=== PATIENT | female | born 1990 | race Caucasian/White ===

== ENCOUNTER 2018-02-09 16:25 | Emergency (ER) ==
[2018-02-09 16:35] VITALS: BP 104/68; TEMP 98.2; BMI 21.2
--- NOTE | 2018-02-09 18:01 | ED.PDOC ---
General ED Provider: Dr. EMELINA GONZALES MD Chief Complaint: Nausea/Vomiting Stated Complaint: Rachele been throwing up all day Time Seen by Physician: 18:00 Mode of Arrival: Walk-In Information Source: Patient Exam Limitations: No limitations Primary Care Provider: KRISTI SHABAZZ Referred to ED by: Other Nursing and Triage Documentation Reviewed and Agree: Yes Reviewed sepsis parameters & appropriate labs ordered?: Yes System Inflammatory Response Syndrome: Temp 96.8F or Lower, Pulse >90 BPM Sepsis Protocol: For patient's 13 years and over: Temp is 96.8 and below OR 101 and greater Pulse >90 BPM Resp >20/minute Acutely Altered Mental Status Are patient's symptoms suggestive of a new infection, such as: -Pneumonia -Skin, Soft Tissue -Endocarditis -UTI -Bone, Joint Infection -Implantable Device -Acute Abdominal Infection -Wound Infection -Meningitis -Blood Stream Catheter Infection -Unknown GI Complaint Exam - Vomiting/Diarrhea Complaint/Exam Onset/Duration: today Symptoms Are: Still present Episodes of Vomiting over last 24 Hours: 10 Initial Severity: Mild Current Severity: Moderate Character of Vomiting: Reports: Non-bilious Aggravating: Reports: None Alleviating: Reports: None : 1 Para: 1 Review of Systems - Review Of Systems Constitutional: Reports: No symptoms Eyes: Reports: No symptoms Ears, Nose, Mouth, Throat: Reports: No symptoms Respiratory: Reports: No symptoms Cardiac: Reports: No symptoms GI: Reports: No symptoms, Vomiting : Reports: No symptoms (delivered baby 2 months ago) Musculoskeletal: Reports: No symptoms Skin: Reports: No symptoms Neurological: Reports: No symptoms Endocrine: Reports: No symptoms Hematologic/Lymphatic: Reports: No symptoms All Other Systems: Reviewed and Negative Past Medical History - Past Medical History Previously Healthy: Yes Endocrine: Reports: None Cardiovascular: Reports: None Respiratory: Reports: None Hematological: Reports: None Gastrointestinal: Reports: None Genitourinary: Reports: None Neuro/Psych: Reports: None Musculoskeletal: Reports: None Cancer: Reports: None Last Menstrual Period: more than 2 months, is 2 months - Surgical History General Surgical History: Reports: None, Tonsillectomy, Other (PE TUBES) - Family History Family History: Reports: Unknown - Social History Smoking Status: Current every day smoker, Light tobacco smoker Hx Substance Use: No Alcohol Screening: None Physical Exam - Physical Exam Appearance: No pain distress Ill-appearing: Mild Eyes: TORY, EOMI, Conjunctiva clear ENT: Ears normal, Nose normal, Oropharynx normal Neck: Supple Respiratory: Airway patent, Breath sounds clear, Breath sounds equal, Respirations nonlabored Cardiovascular: RRR, Pulses normal, No rub, No murmur GI/: Soft, Nontender, No masses, Bowel sounds normal (slightly decreased), No Organomegaly Musculoskeletal: Normal strength, ROM intact, No edema, No calf tenderness Skin: Warm, Dry, Normal color Neurological: Sensation intact, Motor intact, Reflexes intact, Cranial nerves intact, Alert, Oriented Psychiatric: Affect appropriate, Mood appropriate Interpretation - Radiology Interpretation Exam Interpreted: Other Xray Comments: KUB showed increased gas Radiology Interpretation By: ED Physician Re-Evaluation - Re-Evaluation Time of Re-Evaluation: 19:15 Status: Improved Pain Level: none Appearance: NAD Lungs: Clear Skin: Warm and Dry Neuro: Alert and Oriented X3 CV: RRR Critical Care Note - Critical Care Note Total Time (mins): 0 Course - Course Hematology/Chemistry: 02/09/18 18:11 02/09/18 18:11 Orders, Labs, Meds: Lab Review 02/09/18 02/09/18 02/09/18 18:11 18:11 18:25 WBC 10.70 H RBC 4.69 Hgb 13.6 Hct 38.0 MCV 81.0 MCH 29.0 MCHC 35.8 H RDW Coeff of Zamzam 13.0 Plt Count 198 Immature Gran % (Auto) 0.3 Neut % (Auto) 76.4 Lymph % (Auto) 13.4 [place] % (Auto) 6.2 Eos % (Auto) 3.6 Baso % (Auto) 0.1 Immature Gran # (Auto) 0.0 Neut # (Auto) 8.2 H Lymph # (Auto) 1.4 [place] # (Auto) 0.7 Eos # (Auto) 0.4 Baso # (Auto) 0.0 Sodium 137 Potassium 3.8 Chloride 106 Carbon Dioxide 22 Anion Gap 12.8 BUN 14 Creatinine 0.91 Estimated GFR (MDRD) 75.00 BUN/Creatinine Ratio 15.38 Glucose 93 Calcium 9.8 Urine Test Negative Orders Category Date Time Status BMP [BASIC METABOLIC PANEL] Stat LAB 02/09/18 18:11 Completed CBC W/ AUTO DIFF Stat LAB 02/09/18 18:11 Completed TEST URINE [URINE ] Stat LAB 02/09/18 18:25 Completed Prochlorperazine Edisylate [Compazine] MEDS 02/09/18 18:04 Discontinued 10 mg IM ONCE STA ABDOMEN 1 VIEW Stat RADS 02/09/18 18:03 Ordered Medications Discontinued Medications Generic Name Dose Route Start Last Admin Trade Name Freq PRN Reason Stop Dose Admin Prochlorperazine Edisylate 10 mg 02/09/18 18:04 02/09/18 18:16 Compazine IM 02/09/18 18:05 10 mg ONCE STA Administration Vital Signs: Temp Pulse Resp BP Pulse Ox 02/09/18 16:29 98.2 F 107 H 20 104/68 98 Departure - Departure Time of Disposition: 19:30 Disposition: HOME SELF-CARE Discharge Problem: Gastroenteritis Condition: Good Pt referred to PMD for follow-up: Yes IPMP verified?: No Allergies/Adverse Reactions: Allergies No Known Allergies Allergy (Verified 09/13/16 11:21) Home Medications: Ambulatory Orders Venlafaxine HCl [Effexor] 75 mg PO DAILY 02/09/18
[2018-02-09] MEDS ORDERED: COMPAZINE IM STA (18:04)
--- NOTE | 2018-02-10 07:52 | DI ---
EXAM: Abdomen, single view 02/09/2018 HISTORY: Vomiting COMPARISON: 08/03/2013 FINDINGS / IMPRESSION: Nonobstructive bowel gas pattern
== END 2018-02-09 19:50 | disposition home or self-care (01) ==
LOC: ED 16:25
DX: K52.9 Noninfective gastroenteritis and colitis, unspecified (principal); F17.210 Nicotine dependence, cigarettes, uncomplicated
CPT/HCPCS: 36415; 80048; 81025; 85025; 96372; 99283

== ENCOUNTER 2018-12-07 09:31 | Emergency (ER) ==
[2018-12-07 09:36] VITALS: BP 107/66; TEMP 97.4; BMI 19.5
--- NOTE | 2018-12-21 14:58 | ED.PDOC ---
General ED Provider: Dr. OH ROSEN Chief Complaint: Medication Refill Stated Complaint: med refill Time Seen by Physician: 09:45 (medrefill effexor) Mode of Arrival: Walk-In Information Source: Patient Exam Limitations: No limitations Nursing and Triage Documentation Reviewed and Agree: Yes Does patient meet sepsis criteria?: No System Inflammatory Response Syndrome: Not Applicable Sepsis Protocol: For patient's 13 years and over: Temp is 96.8 and below OR 101 and greater Pulse >90 BPM Resp >20/minute Acutely Altered Mental Status Are patient's symptoms suggestive of a new infection, such as: -Pneumonia -Skin, Soft Tissue -Endocarditis -UTI -Bone, Joint Infection -Implantable Device -Acute Abdominal Infection -Wound Infection -Meningitis -Blood Stream Catheter Infection -Unknown Psychological Complaint Exam - Psychiatric Complaint/Exam Patient Complains Of: Present: Depression. Absent: Suicidal thoughts, Suicidal gestures Symptoms Are: Still present Timing: Constant Initial Severity: Mild Current Severity: Mild Character: Present: Anxious Aggravating: Reports: None Associated Signs And Symptoms: Denies: Hostile, Confused, Hallucinating, Paranoid behavior, Sleep disturbance, Appetite change Related History: Denies: Suicidal thoughts, Suicidal plan, Suicidal gestures, Homicidal thoughts, Homicidal gestures, Prior attempts Completed Suicide Risk Factors: None Social Withdrawal Present: No Social Isolation Present: No Prior Suicide Attempt: No Injury From Prior Suicide Attempt: No Related Surgical History: Reports: None Patient Uncooperative For Exam: No Review of Systems - Review Of Systems Constitutional: Reports: No symptoms Eyes: Reports: No symptoms Ears, Nose, Mouth, Throat: Reports: No symptoms Respiratory: Reports: No symptoms Cardiac: Reports: No symptoms GI: Reports: No symptoms : Reports: No symptoms Musculoskeletal: Reports: No symptoms Skin: Reports: No symptoms Neurological: Reports: Emotional problems Endocrine: Reports: No symptoms Hematologic/Lymphatic: Reports: No symptoms All Other Systems: Reviewed and Negative Past Medical History - Past Medical History Previously Healthy: Yes Endocrine: Reports: None Cardiovascular: Reports: None Respiratory: Reports: None Hematological: Reports: None Gastrointestinal: Reports: None Genitourinary: Reports: None Neuro/Psych: Reports: None Musculoskeletal: Reports: None Cancer: Reports: None Last Menstrual Period: just finished yesterday - Surgical History General Surgical History: Reports: None, Tonsillectomy, Other (PE TUBES) - Family History Family History: Reports: Unknown - Social History Smoking Status: Current every day smoker, Light tobacco smoker Hx Substance Use: No Alcohol Screening: None Physical Exam - Physical Exam Appearance: Well-appearing, No pain distress, Well-nourished Eyes: TORY, EOMI, Conjunctiva clear ENT: Ears normal, Nose normal, Oropharynx normal Respiratory: Airway patent, Breath sounds clear, Breath sounds equal, Respirations nonlabored Cardiovascular: RRR, Pulses normal, No rub, No murmur GI/: Soft, Nontender, No masses, Bowel sounds normal, No Organomegaly Musculoskeletal: Normal strength, ROM intact, No edema, No calf tenderness Skin: Warm, Dry, Normal color Neurological: Sensation intact, Motor intact, Reflexes intact, Cranial nerves intact, Alert, Oriented Psychiatric: Affect appropriate, Mood appropriate Critical Care Note - Critical Care Note Total Time (mins): 0 Course - Course Vital Signs: Temp Pulse Resp BP Pulse Ox 12/07/18 09:32 97.4 F L 74 20 107/66 99 Departure - Departure Time of Disposition: 14:57 Disposition: HOME SELF-CARE Discharge Problem: Medication refill Instructions: Medicine Refill (ED) Condition: Good Pt referred to PMD for follow-up: Yes IPMP verified?: No Additional Instructions: FOLLOW UP WITH YOUR PRIMARY DR SOON POSSIBLE EFFEXOR 75 MG DAILY #2 Allergies/Adverse Reactions: Allergies No Known Allergies Allergy (Verified 12/07/18 09:36) Home Medications: Ambulatory Orders Venlafaxine HCl [Effexor] 75 mg PO DAILY 02/09/18 Clonazepam [Klonopin] 0.5 mg PO BID 12/07/18
== END 2018-12-07 09:53 | disposition home or self-care (01) ==
LOC: ED 09:31
DX: Z76.0 Encounter for issue of repeat prescription (principal); F17.210 Nicotine dependence, cigarettes, uncomplicated
CPT/HCPCS: 99282

== ENCOUNTER 2018-12-31 14:35 | Outpatient (CLI) | END 2018-12-31 14:36 | disposition home or self-care (01) | LOC: RHC-LAB 14:35 | PROVIDERS: ATTEND Nurse Practitioner Family | DX: F41.9 Anxiety disorder, unspecified (principal); Z72.0 Tobacco use; R45.4 Irritability and anger | CPT/HCPCS: 36415; 80053; 80061; 84443; 85025 ==